=== PATIENT | male | born 1980 | race Caucasian/White ===

== ENCOUNTER 2019-10-21 18:56 | Emergency (ER) | payer BC ==
[~2019-10-21] VITALS: Ht 188 cm; Wt 104.3 kg
[~2019-10-21 18:56] MED LIST: CYCL10 PO; HYDACE5 PO; KETO10 PO; NAPR500 PO; OXYC5
[2019-10-21] MEDS ORDERED: Robaxin-750750 MG PO (20:18)
[2019-10-21] MEDS ORDERED: LIDO700A20 TOP (20:18)
[2019-10-21] MEDS ORDERED: Prednisone20 MG PO (20:18)
== END 2019-10-21 20:35 | disposition home or self-care (01) ==
LOC: ER 18:56
DX: M54.17 Radiculopathy, lumbosacral region (principal); Z88.5 Allergy status to narcotic agent
CPT/HCPCS: 72100; 96372; 99283-25; J1100; J1885

== ENCOUNTER 2022-12-23 02:49 | Emergency (ER) | payer OTHER ==
[~2022-12-23] VITALS: Ht 188 cm; Wt 93.0 kg
[~2022-12-23 02:49] MED LIST changes: +LIDO700A20 TOP; +Prednisone20 MG PO; +Robaxin-750750 MG PO
[2022-12-23 04:11] LABS: BASOPHILS ABSOLUTE AUTO 0.04 K/mm3 (0.00-0.23); BASOPHILS PERCENT AUTO 0 % (0-2); EOSINOPHILS ABSOLUTE AUTO 0.14 K/mm3 (0.00-0.68); EOSINOPHILS PERCENT AUTO 1 % (0-6); Hemoglobin 14.9 g/dL (13.5-17.5); IMMATURE GRAN ABSOLUTE AUTO 0.05 K/mm3 (0.00-0.10); IMMATURE GRAN PERCENT AUTO 0 % (0-1); LYMPHOCYTES ABSOLUTE AUTO 1.08 K/mm3 (0.84-5.20); LYMPHOCYTES PERCENT AUTO 9 % (21-46); MONOCYTES ABSOLUTE AUTO 0.78 K/mm3 (0.16-1.47); MONOCYTES PERCENT AUTO 6 % (4-13); Mean Corpuscular HGB 29.9 pg (26.0-34.0); Mean Corpuscular HGB Conc 34.7 g/dL (31.5-36.5); Mean Corpuscular Volume 86 fL (80-100); Mean Platelet Volume 10.7 fL (9.1-12.4); NEUTROPHILS ABSOLUTE AUTO 10.12 K/mm3 (1.96-9.15); NEUTROPHILS PERCENT AUTO 83 % (41-73); Platelet Count 274 K/mm3 (150-400); RDW Coefficient Variation 13.2 % (11.7-14.2); Red Blood Cell Count 4.99 M/mm3 (4.30-5.90); White Blood Cell Count 12.21 K/mm3 (4.00-11.30)
[2022-12-23 04:41] LABS: Albumin, Blood 3.5 g/dL (3.4-5.0); Bilirubin, Total 0.6 mg/dL (0.1-1.0); Bun/Creatinine Ratio 15.9 (12.0-20.0); Creatinine, Blood 0.88 mg/dL (0.60-1.20); Globulin, Blood 3.6 g/dL (2.2-4.0); Potassium, Blood 3.8 mmol/L (3.5-5.5); Total Protein, Blood 7.1 g/dL (6.4-8.2)
== END 2022-12-23 08:13 | disposition home or self-care (01) ==
LOC: ER 02:49
PROVIDERS: Student in an Organized Health Care Education/Training Program
DX: R56.9 Unspecified convulsions (principal); Z88.5 Allergy status to narcotic agent
CPT/HCPCS: 36415; 70450; 80053; 84484; 85025; 93005; 93010; 99284-25